=== PATIENT | male | born 1955 | race Caucasian/White ===

== ENCOUNTER 2016-06-23 12:09 | Emergency (ER) | payer MEDICARE, BC ==
[2016-06-23] MEDS ORDERED: COZAAR25 M1 PO ×2 (14:16→19:38)
[2016-06-23] MEDS ORDERED: CHANTIX START M1 TAB (14:17)
[2016-06-23] MEDS ORDERED: WELLBUTRIN SR150 M2 PO (19:34)
[2016-06-23] MEDS ORDERED: LAMICTAL150 MG PO (19:36)
[2016-06-23] MEDS ORDERED: ZYLOPRIM 100MG100 MG PO (19:36)
[2016-06-23] MEDS ORDERED: TYLENOL 325MG325 MG PO (19:36)
[2016-06-23] MEDS ORDERED: LASIX40 M1 PO (19:37)
[2016-06-23] MEDS ORDERED: ASPIRIN E.C. 8181 MG PO (19:37)
[2016-06-23] MEDS ORDERED: COLACE100 M1 PO (19:37)
[2016-06-23] MEDS ORDERED: LEXAPRO20 M1 PO (19:37)
[2016-06-23] MEDS ORDERED: LANTUS SOLOS100 U/ML SC (19:38)
[2016-06-23] MEDS ORDERED: NYSTATIN CREAM15 GM TOP (19:38)
[2016-06-23] MEDS ORDERED: HCTZ 25MG25 MG PO (19:38)
[2016-06-23] MEDS ORDERED: PRAVACHOL80 MG PO (19:39)
[2016-06-23] MEDS ORDERED: MIRALAX17 GM PO (19:39)
[2016-06-23] MEDS ORDERED: RISPERDAL 1M1 MG/TAB (19:40)
[2016-06-23] MEDS ORDERED: NATURE'S BLEND100 M2 PO (19:40)
[2016-06-23] MEDS ORDERED: SEROQUEL XR50 MG PO (19:40)
[2016-06-23] MEDS ORDERED: FLOMAX0.4 MG PO (19:40)
== END 2016-06-23 16:13 | disposition home or self-care (01) ==
LOC: ED 12:09
DX: S00.93XA Contusion of unspecified part of head, initial encounter (principal); S09.90XA Unspecified injury of head, initial encounter; S01.81XA Laceration without foreign body of other part of head, initial encounter; S00.83XA Contusion of other part of head, initial encounter; T14.8 Other injury of unspecified body region; W10.9XXA Fall (on) (from) unspecified stairs and steps, initial encounter; Y92.018 Other place in single-family (private) house as the place of occurrence of the external cause
CPT/HCPCS: 90715; A4550

== ENCOUNTER 2016-06-29 14:37 | Emergency (ER) | payer MEDICARE, BC ==
[~2016-06-29 14:37] MED LIST: ASPIRIN E.C. 8181 MG PO; CHANTIX START M1 TAB; COLACE100 M1 PO; COZAAR25 M1 PO; FLOMAX0.4 MG PO; HCTZ 25MG25 MG PO; LAMICTAL150 MG PO; LANTUS SOLOS100 U/ML SC; LASIX40 M1 PO; LEXAPRO20 M1 PO; MIRALAX17 GM PO; NATURE'S BLEND100 M2 PO; NYSTATIN CREAM15 GM TOP; PRAVACHOL80 MG PO; RISPERDAL 1M1 MG/TAB; SEROQUEL XR50 MG PO; TYLENOL 325MG325 MG PO; WELLBUTRIN SR150 M2 PO; ZYLOPRIM 100MG100 MG PO
[2016-06-29 14:54] VITALS: BP 131/72
== END 2016-06-29 14:54 | disposition home or self-care (01) ==
LOC: ED 14:37
DX: S01.81XD Laceration without foreign body of other part of head, subsequent encounter (principal)

== ENCOUNTER 2016-12-07 12:57 | Emergency (ER) | payer MEDICARE, BC ==
[~2016-12-07] VITALS: Wt 112.2 kg
[2016-12-07] MEDS ORDERED: LAMICTAL ODT200 MG PO (13:21)
[2016-12-07] MEDS ORDERED: BRAIN MIGHT-DH1 EACH PO (13:22)
[2016-12-07 16:29] VITALS: BP 146/88
== END 2016-12-07 16:15 | disposition other institution (70) ==
LOC: ED 12:57
DX: R41.82 Altered mental status, unspecified (principal); E86.0 Dehydration; E11.65 Type 2 diabetes mellitus with hyperglycemia; Z79.4 Long term (current) use of insulin; I10 Essential (primary) hypertension; Z86.73 Personal history of transient ischemic attack (TIA), and cerebral infarction without residual deficits; F31.9 Bipolar disorder, unspecified; T38.3X6A Underdosing of insulin and oral hypoglycemic [antidiabetic] drugs, initial encounter; T43.96XA Underdosing of unspecified psychotropic drug, initial encounter
CPT/HCPCS: J7030

== ENCOUNTER 2016-12-07 16:08 | Inpatient (IN) | payer MEDICARE, BC ==
[~2016-12-07] VITALS: Ht 172.7 cm; Wt 119.4 kg
[2016-12-07] VITALS (7 sets, daily range): BP systolic 146–169; BP diastolic 81–88
[~2016-12-07 16:08] MED LIST changes: +BRAIN MIGHT-DH1 EACH PO; +LAMICTAL ODT200 MG PO
[2016-12-08 02:53] VITALS: BP 142/71
[2016-12-08 06:18] VITALS: BP 159/84
[2016-12-08 11:44] VITALS: BP 150/77
[2016-12-08 15:20] VITALS: BP 142/72
[2016-12-08 18:03] VITALS: BP 139/69
[2016-12-08 23:04] VITALS: BP 136/69
[2016-12-09 03:07] VITALS: BP 128/72
[2016-12-09 06:31] VITALS: BP 140/78
[2016-12-09 11:53] VITALS: BP 119/69
[2016-12-09 15:45] VITALS: BP 112/72
[2016-12-09 18:20] VITALS: BP 140/75
[2016-12-09 22:49] VITALS: BP 126/66
[2016-12-10 02:25] VITALS: BP 143/82
[2016-12-10 05:42] VITALS: BP 137/66
[2016-12-10 11:14] VITALS: BP 143/87
[2016-12-10 14:54] VITALS: BP 129/65
[2016-12-10 18:33] VITALS: BP 119/63
[2016-12-10 23:13] VITALS: BP 140/68
[2016-12-11 02:24] VITALS: BP 161/82
[2016-12-11 06:28] VITALS: BP 138/76
[2016-12-11 10:47] VITALS: BP 141/74
[2016-12-11 15:13] VITALS: BP 149/69
[2016-12-11 18:49] VITALS: BP 138/73
[2016-12-11 23:10] VITALS: BP 123/63
[2016-12-12 03:04] VITALS: BP 134/71
[2016-12-12 06:31] VITALS: BP 149/79
== END 2016-12-10 00:01 | disposition home health service (06) | DRG 690 ==
LOC: EDSTATUS 16:08 → MED/SURG 16:15
PROVIDERS: ADMIT Nurse Practitioner Primary Care
DX: N39.0 Urinary tract infection, site not specified (principal); R41.82 Altered mental status, unspecified; E86.0 Dehydration; E11.65 Type 2 diabetes mellitus with hyperglycemia; Z79.4 Long term (current) use of insulin; I10 Essential (primary) hypertension; F31.9 Bipolar disorder, unspecified; Z91.14 Patient's other noncompliance with medication regimen; N40.0 Benign prostatic hyperplasia without lower urinary tract symptoms; G47.33 Obstructive sleep apnea (adult) (pediatric); H04.123 Dry eye syndrome of bilateral lacrimal glands; Z86.73 Personal history of transient ischemic attack (TIA), and cerebral infarction without residual deficits
CPT/HCPCS: A9585; G0378; G0379; J1650; J1815; J7030

== ENCOUNTER 2016-12-10 00:02 | Observation (INO) | payer MEDICARE, BC ==
[2016-12-12 11:45] VITALS: BP 163/73
[2016-12-12] MEDS ORDERED: LAMICTAL200 M1 PO (18:02)
[2016-12-12] MEDS ORDERED: SEROQUEL50 MG PO (18:09)
--- NOTE | 2016-12-13 16:34 | NUR ---
Observation procedure documentation charges placed on this chart for days 12/09 thru 12/12. These Charges were removed from his inpt chart ([id number]).
== END 2016-12-12 15:40 | disposition swing bed (61) ==
LOC: MED/SURG 00:02
PROVIDERS: ADMIT Nurse Practitioner Primary Care
DX: G45.9 Transient cerebral ischemic attack, unspecified (principal); R41.82 Altered mental status, unspecified; Z91.14 Patient's other noncompliance with medication regimen; E86.0 Dehydration; E11.8 Type 2 diabetes mellitus with unspecified complications; Z79.4 Long term (current) use of insulin; Z86.73 Personal history of transient ischemic attack (TIA), and cerebral infarction without residual deficits; I10 Essential (primary) hypertension; F10.21 Alcohol dependence, in remission; Z79.82 Long term (current) use of aspirin; N39.0 Urinary tract infection, site not specified; G47.33 Obstructive sleep apnea (adult) (pediatric); F31.9 Bipolar disorder, unspecified
CPT/HCPCS: G0378; G0379; J1650; J1815; J7030

== ENCOUNTER 2016-12-12 15:41 | Inpatient (IN) | payer MEDICARE, BC ==
[~2016-12-12] VITALS: Ht 172.7 cm; Wt 120.3 kg
[2016-12-12] MEDS ORDERED: LAMICTAL200 M1 PO (18:02)
[2016-12-12] MEDS ORDERED: SEROQUEL50 MG PO (18:09)
[2016-12-12 18:52] VITALS: BP 144/74
[2016-12-12 19:40] VITALS: BP 144/74
[2016-12-13 06:34] VITALS: BP 119/69
[2016-12-13 18:08] VITALS: BP 148/70
[2016-12-14 06:38] VITALS: BP 109/63
[2016-12-14 18:37] VITALS: BP 139/76
[2016-12-15 06:39] VITALS: BP 114/61
[2016-12-15 18:29] VITALS: BP 141/74
[2016-12-16 06:30] VITALS: BP 119/70
[2016-12-16 18:18] VITALS: BP 141/65
[2016-12-17 06:27] VITALS: BP 147/75
[2016-12-17 18:37] VITALS: BP 138/63
[2016-12-18 06:23] VITALS: BP 121/61
[2016-12-18 18:27] VITALS: BP 156/81
[2016-12-19 06:44] VITALS: BP 134/69
[2016-12-19 17:56] VITALS: BP 150/66
[2016-12-20 06:23] VITALS: BP 136/76
[2016-12-20] MEDS ORDERED: CLOPIDOGREL75 M1 PO (07:45)
[2016-12-20] MEDS ORDERED: NYSTATIN POWDER30 GM TP (07:50)
== END 2016-12-20 09:42 | disposition home health service (06) | DRG 57 ==
LOC: MED/SURG 15:41
PROVIDERS: ADMIT Nurse Practitioner Primary Care
DX: I69.818 Other symptoms and signs involving cognitive functions following other cerebrovascular disease (principal); R53.81 Other malaise; I10 Essential (primary) hypertension; E11.9 Type 2 diabetes mellitus without complications; L60.3 Nail dystrophy; I69.398 Other sequelae of cerebral infarction; G93.89 Other specified disorders of brain; F31.9 Bipolar disorder, unspecified; B37.2 Candidiasis of skin and nail; Z79.4 Long term (current) use of insulin
CPT/HCPCS: J1650; J1815

== ENCOUNTER 2016-12-21 09:50 | Outpatient (RCR) | payer MEDICARE, BC ==
[2016-12-20 06:23] VITALS: BP 136/76
[~2016-12-21 09:50] MED LIST changes: +CLOPIDOGREL75 M1 PO; +LAMICTAL200 M1 PO; +NYSTATIN POWDER30 GM TP; +SEROQUEL50 MG PO
== END 2017-01-05 14:37 ==
LOC: OPPGERO 09:50
DX: F41.1 Generalized anxiety disorder (principal)

== ENCOUNTER 2017-01-06 08:41 | Outpatient (RCR) | payer MEDICARE, BC | END 2017-02-03 15:18 | LOC: OPPGERO 08:41 | DX: F31.9 Bipolar disorder, unspecified (principal); F41.1 Generalized anxiety disorder ==

== ENCOUNTER 2017-02-05 09:00 | Outpatient (RCR) | payer MEDICARE, BC | END 2017-03-07 16:25 | LOC: OPPGERO 09:00 | DX: F31.9 Bipolar disorder, unspecified (principal); F41.1 Generalized anxiety disorder ==

== ENCOUNTER 2017-03-08 10:12 | Outpatient (RCR) | payer MEDICARE, BC | END 2017-04-06 13:03 | LOC: OPPGERO 10:12 | DX: F31.9 Bipolar disorder, unspecified (principal); F41.1 Generalized anxiety disorder ==

== ENCOUNTER 2020-07-12 10:26 | Emergency (ER) | payer MEDICARE, BC ==
[~2020-07-12 10:26] MED LIST changes: -LAMICTAL200 M1 PO; -LASIX40 M1 PO; +LASIX80 M1 PO
[2020-07-12] MEDS ORDERED: HCTZ 25MG25 MG PO (10:42)
[2020-07-12] MEDS ORDERED: MEMANTINE HCL10 MG PO (10:44)
[2020-07-12] MEDS ORDERED: NORVASC 10MG10 MG PO (10:45)
[2020-07-12] MEDS ORDERED: LOSARTAN POTASS25 MG PO (10:46)
[2020-07-12] MEDS ORDERED: RISPERIDONE0.5 M2 PO (10:46)
[2020-07-12] MEDS ORDERED: DONEPEZIL HCL10 MG PO (10:46)
[2020-07-12] MEDS ORDERED: ESCITALOPRAM20 MG PO (10:47)
[2020-07-12] MEDS ORDERED: LAMOTRIGINE200 MG PO (10:47)
[2020-07-12] MEDS ORDERED: QUETIAPINE FUMA50 MG PO (10:47)
[2020-07-12] MEDS ORDERED: WELLBUTRIN XL150 M2 PO (10:47)
[2020-07-12 11:19] LABS: EOS # 0.5 (0.04-0.40); HEMOGLOBIN 11.4 g/dL (13.5-18.0); MEAN CELL VOLUME 93 fl (78-100); MEAN CORPUSCULAR HEMOGLOBIN 29 pg (27-31); MEAN CORPUSCULAR HGB CONC 31 g/dL (33-37); MEAN PLATELET VOLUME 10.4 fl (7.4-10.4); MONO # 0.6 (0.20-0.80); NEU # 5.7 (1.40-6.50); PLATELET COUNT 239 K/mm3 (130-400); RED CELL DISTRIBUTION WIDTH 14.9 % (11.5-14.5); WHITE BLOOD COUNT 7.8 K/mm3 (4.8-10.8)
[2020-07-12 11:20] LABS: EOS % 6.4 % (0.0-4.0)
[2020-07-12 11:30] LABS: ALBUMIN 2.8 g/dL (3.4-4.8)
[2020-07-12 11:31] LABS: POTASSIUM 4.5 mmol/L (3.5-5.1)
[2020-07-12 11:32] LABS: CALCIUM 7.9 mg/dL (8.3-10.5)
[2020-07-12 11:33] LABS: TOTAL PROTEIN 5.9 g/dL (6.2-8.1)
[2020-07-12 11:43] LABS: TOTAL BILIRUBIN 0.1 mg/dL (0.2-1.2)
[2020-07-12 13:28] LABS: URINE APPEARANCE CLEAR; URINE BILIRUBIN NEGATIVE (NEGATIVE); URINE BLOOD TRACE (NEGATIVE); URINE COLOR YELLOW; URINE KETONE NEGATIVE (NEGATIVE); URINE LEUKOCYTE ESTERASE NEGATIVE (NEGATIVE); URINE NITRATE NEGATIVE (NEGATIVE); URINE PROTEIN(semi-quant) 3+ mg/dL (NEGATIVE); URINE UROBILINOGEN NORMAL (NORMAL); URINE WBC 0-1 /hpf (0-3)
[2020-07-12 15:32] VITALS: BP 159/77
== END 2020-07-12 15:12 | disposition home or self-care (01) ==
LOC: ED 10:26
PROVIDERS: Family Medicine
DX: R53.81 Other malaise (principal); T50.B95A Adverse effect of other viral vaccines, initial encounter; E11.9 Type 2 diabetes mellitus without complications; F31.9 Bipolar disorder, unspecified; I13.0 Hypertensive heart and chronic kidney disease with heart failure and stage 1 through stage 4 chronic kidney disease, or unspecified chronic kidney disease; N18.9 Chronic kidney disease, unspecified; Z79.02 Long term (current) use of antithrombotics/antiplatelets; Z79.82 Long term (current) use of aspirin

== ENCOUNTER 2021-03-02 13:37 | Inpatient (IN) | payer MEDICARE, BC ==
[~2021-03-02] VITALS: Ht 175.3 cm; Wt 116.0 kg
[~2021-03-02 13:37] MED LIST changes: +DONEPEZIL HCL10 MG PO; +ESCITALOPRAM20 MG PO; +LAMOTRIGINE200 MG PO; +LOSARTAN POTASS25 MG PO; +MEMANTINE HCL10 MG PO; +NORVASC 10MG10 MG PO; +QUETIAPINE FUMA50 MG PO; +RISPERIDONE0.5 M2 PO; +WELLBUTRIN XL150 M2 PO
[2021-03-02 16:00] VITALS: BP 158/69
[2021-03-02] MEDS ORDERED: ACID-PEP20 MG PO (16:05)
[2021-03-02] MEDS ORDERED: INSULIN AS100 UNIT/2 SQ (16:07)
[2021-03-02] MEDS ORDERED: BETAMETHASONE D0.05% TOP (16:11)
[2021-03-02] MEDS ORDERED: CLOPIDOGREL PO (16:12)
[2021-03-02] MEDS ORDERED: VITAMIN D250 MC1 PO (16:14)
[2021-03-02] MEDS ORDERED: NIZORAL A-D125 ML TP (16:15)
[2021-03-02] MEDS ORDERED: LOPERAMIDE1 MG/7.51 PO (16:27)
[2021-03-02] MEDS ORDERED: LOPERAMIDE2 M2 PO (16:28)
[2021-03-02] MEDS ORDERED: COZAAR25 M1 PO (16:29)
[2021-03-02] MEDS ORDERED: TRIAMCINOLONE A60 M2 TP (16:38)
[2021-03-02 18:18] VITALS: BP 158/69
[2021-03-02 18:26] LABS: URINE APPEARANCE CLEAR; URINE COLOR YELLOW; URINE PROTEIN(semi-quant) 3+ mg/dL (NEGATIVE)
[2021-03-02 18:27] LABS: URINE BILIRUBIN NEGATIVE (NEGATIVE); URINE BLOOD 50 ery/uL (NEGATIVE); URINE GLUCOSE 50 mg/dL mg/dL (NEGATIVE); URINE KETONE NEGATIVE (NEGATIVE); URINE LEUKOCYTE ESTERASE NEGATIVE (NEGATIVE); URINE MUCUS PRESENT (NOT PRESENT); URINE NITRATE NEGATIVE (NEGATIVE); URINE UROBILINOGEN NORMAL (NORMAL); URINE WBC 0-1 /hpf (0-3)
[2021-03-02] MEDS ORDERED: DICLOFENAC SOD100 GM TP (19:55)
[2021-03-03 05:38] VITALS: BP 162/68
[2021-03-03 07:06] LABS: BASO # 0.04 K/mm3 (0.02-0.10); EOS # 0.47 K/mm3 (0.04-0.40); EOS % 7.2 % (0.0-4.0); HEMATOCRIT 38.2 % (42.0-52.0); HEMOGLOBIN 11.6 g/dL (13.5-18.0); MEAN CELL VOLUME 92 fl (78-100); MEAN CORPUSCULAR HEMOGLOBIN 28 pg (27-31); MEAN CORPUSCULAR HGB CONC 30 g/dL (33-37); MEAN PLATELET VOLUME 10.8 fl (7.4-10.4); MONO # 0.71 K/mm3 (0.20-0.80); NEU # 4.25 K/mm3 (1.40-6.50); PLATELET COUNT 268 K/mm3 (130-400); RED BLOOD COUNT 4.15 M/mm3 (4.20-5.60); RED CELL DISTRIBUTION WIDTH 14.7 % (11.5-14.5); WHITE BLOOD COUNT 6.5 K/mm3 (4.8-10.8)
[2021-03-03 07:09] LABS: ALBUMIN 2.9 g/dL (3.4-4.8)
[2021-03-03 07:10] LABS: POTASSIUM 4.6 mmol/L (3.5-5.1)
[2021-03-03 07:11] LABS: CALCIUM 9.5 mg/dL (8.3-10.5)
[2021-03-03 07:12] LABS: TOTAL PROTEIN 6.5 g/dL (6.2-8.1)
[2021-03-03 07:14] LABS: TOTAL BILIRUBIN 0.3 mg/dL (0.2-1.2)
[2021-03-03 17:12] VITALS: BP 153/66
[2021-03-04 05:57] VITALS: BP 154/62
[2021-03-04 06:49] LABS: POTASSIUM 4.3 mmol/L (3.5-5.1)
[2021-03-04 06:50] LABS: CALCIUM 9.2 mg/dL (8.3-10.5)
[2021-03-04 18:04] VITALS: BP 157/63
[2021-03-05 05:35] VITALS: BP 156/76
[2021-03-05 07:35] LABS: POTASSIUM 4.5 mmol/L (3.5-5.1)
[2021-03-05 07:36] LABS: CALCIUM 8.9 mg/dL (8.3-10.5)
[2021-03-05] MEDS ORDERED: SEROQUEL XR50 MG PO (08:32)
[2021-03-05 17:52] VITALS: BP 162/71
[2021-03-06 05:33] VITALS: BP 154/70
[2021-03-06 18:17] VITALS: BP 123/67
[2021-03-07 06:00] VITALS: BP 150/71
[2021-03-07 17:01] VITALS: BP 151/71
[2021-03-08 05:38] VITALS: BP 138/75
[2021-03-08 07:42] LABS: POTASSIUM 4.5 mmol/L (3.5-5.1)
[2021-03-08 07:44] LABS: CALCIUM 9.2 mg/dL (8.3-10.5)
[2021-03-08 17:21] VITALS: BP 126/67
[2021-03-09 06:07] VITALS: BP 145/75
[2021-03-09 18:12] VITALS: BP 148/71
[2021-03-10 05:58] VITALS: BP 148/68
[2021-03-10 07:41] LABS: POTASSIUM 4.5 mmol/L (3.5-5.1)
[2021-03-10 07:42] LABS: CALCIUM 9.4 mg/dL (8.3-10.5)
[2021-03-10 17:51] VITALS: BP 132/70
[2021-03-11 06:18] VITALS: BP 150/65
[2021-03-11 17:41] VITALS: BP 143/74
[2021-03-12 05:55] VITALS: BP 164/58
[2021-03-12 07:02] LABS: POTASSIUM 4.8 mmol/L (3.5-5.1)
[2021-03-12 07:04] LABS: CALCIUM 9.3 mg/dL (8.3-10.5)
[2021-03-12 17:51] VITALS: BP 144/66
[2021-03-13 05:04] VITALS: BP 155/81
[2021-03-13 18:20] VITALS: BP 151/75
[2021-03-14 04:45] VITALS: BP 153/76
[2021-03-14 18:10] VITALS: BP 137/73
[2021-03-15 06:08] VITALS: BP 169/74
[2021-03-15 07:01] LABS: BASO # 0.05 K/mm3 (0.02-0.10); EOS % 8.2 % (0.0-4.0); HEMATOCRIT 38.1 % (42.0-52.0); HEMOGLOBIN 11.4 g/dL (13.5-18.0); LYMPH# 1.02 K/mm3 (1.50-4.00); MEAN CELL VOLUME 93 fl (78-100); MEAN CORPUSCULAR HEMOGLOBIN 28 pg (27-31); MEAN CORPUSCULAR HGB CONC 30 g/dL (33-37); MEAN PLATELET VOLUME 11.2 fl (7.4-10.4); MONO # 0.56 K/mm3 (0.20-0.80); NEU # 5.07 K/mm3 (1.40-6.50); PLATELET COUNT 248 K/mm3 (130-400); RED CELL DISTRIBUTION WIDTH 15.3 % (11.5-14.5); WHITE BLOOD COUNT 7.3 K/mm3 (4.8-10.8)
[2021-03-15 07:09] LABS: POTASSIUM 4.8 mmol/L (3.5-5.1)
[2021-03-15 07:10] LABS: CALCIUM 8.9 mg/dL (8.3-10.5)
[2021-03-15 15:20] VITALS: BP 125/70
[2021-03-16 05:52] VITALS: BP 170/67
[2021-03-16 17:46] VITALS: BP 165/75
[2021-03-17 06:11] VITALS: BP 151/76
[2021-03-17 17:38] VITALS: BP 161/73
[2021-03-18 05:55] VITALS: BP 171/66
[2021-03-18 13:51] VITALS: BP 152/72
[2021-03-19 05:51] VITALS: BP 128/72
[2021-03-19 17:14] VITALS: BP 147/76
[2021-03-20 05:44] VITALS: BP 166/65
[2021-03-20 17:33] VITALS: BP 144/71
[2021-03-21 05:53] VITALS: BP 148/68
[2021-03-21 17:59] VITALS: BP 143/67
[2021-03-22 06:05] VITALS: BP 154/64
[2021-03-22 06:55] LABS: BASO # 0.05 K/mm3 (0.02-0.10); EOS # 0.67 K/mm3 (0.04-0.40); EOS % 8.4 % (0.0-4.0); HEMATOCRIT 40.2 % (42.0-52.0); HEMOGLOBIN 12.1 g/dL (13.5-18.0); LYMPH# 1.18 K/mm3 (1.50-4.00); MEAN CELL VOLUME 94 fl (78-100); MEAN CORPUSCULAR HEMOGLOBIN 28 pg (27-31); MEAN CORPUSCULAR HGB CONC 30 g/dL (33-37); MEAN PLATELET VOLUME 11.3 fl (7.4-10.4); MONO # 0.68 K/mm3 (0.20-0.80); NEU # 5.43 K/mm3 (1.40-6.50); PLATELET COUNT 216 K/mm3 (130-400); RED BLOOD COUNT 4.28 M/mm3 (4.20-5.60); RED CELL DISTRIBUTION WIDTH 15.6 % (11.5-14.5)
[2021-03-22 07:14] LABS: POTASSIUM 4.9 mmol/L (3.5-5.1)
[2021-03-22 07:15] LABS: CALCIUM 8.9 mg/dL (8.3-10.5)
[2021-03-22 14:23] VITALS: BP 157/74
[2021-03-23 05:46] VITALS: BP 152/65
[2021-03-23 16:29] VITALS: BP 128/65
[2021-03-24 05:38] VITALS: BP 161/73
[2021-03-24] MEDS ORDERED: CYCLOBENZAPRINE10 M1 PO (09:38)
[2021-03-24] MEDS ORDERED: LASIX 80MG TABL80 MG PO (09:39)
[2021-03-24] MEDS ORDERED: HEALTHYLAX17 GM/Dose PO (09:41)
[2021-03-24] MEDS ORDERED: RISPERIDONE0.25 M2 PO (09:43)
[2021-03-24] MEDS ORDERED: PRAVASTATIN SOD20 MG PO (09:45)
[2021-03-24 18:19] VITALS: BP 143/68
[2021-03-25 05:53] VITALS: BP 140/80
== END 2021-03-25 12:50 | disposition home or self-care (01) | DRG 948 ==
LOC: MED/SURG 13:37
PROVIDERS: Family Medicine; Physician Assistant; ADMIT Nurse Practitioner Family
DX: R53.81 Other malaise (principal); N18.4 Chronic kidney disease, stage 4 (severe); Z68.41 Body mass index [BMI] 40.0-44.9, adult; I12.9 Hypertensive chronic kidney disease with stage 1 through stage 4 chronic kidney disease, or unspecified chronic kidney disease; F01.50 Vascular dementia, unspecified severity, without behavioral disturbance, psychotic disturbance, mood disturbance, and anxiety; I95.1 Orthostatic hypotension; E11.22 Type 2 diabetes mellitus with diabetic chronic kidney disease; N40.0 Benign prostatic hyperplasia without lower urinary tract symptoms; E87.70 Fluid overload, unspecified; F31.9 Bipolar disorder, unspecified; E66.01 Morbid (severe) obesity due to excess calories; E78.5 Hyperlipidemia, unspecified; Z79.82 Long term (current) use of aspirin; Z79.4 Long term (current) use of insulin; Z86.73 Personal history of transient ischemic attack (TIA), and cerebral infarction without residual deficits; Z87.891 Personal history of nicotine dependence; Z88.1 Allergy status to other antibiotic agents
CPT/HCPCS: J1650

== ENCOUNTER 2021-08-05 13:22 | Inpatient (IN) | payer MEDICARE, BC ==
[~2021-08-05] VITALS: Ht 170.2 cm; Wt 111.2 kg
[~2021-08-05 13:22] MED LIST changes: +ACID-PEP20 MG PO; +BETAMETHASONE D0.05% TOP; +CLOPIDOGREL PO; +CYCLOBENZAPRINE10 M1 PO; +DICLOFENAC SOD100 GM TP; +HEALTHYLAX17 GM/Dose PO; +INSULIN AS100 UNIT/2 SQ; +LASIX 80MG TABL80 MG PO; +LOPERAMIDE1 MG/7.51 PO; +LOPERAMIDE2 M2 PO; +NIZORAL A-D125 ML TP; +PRAVASTATIN SOD20 MG PO; +RISPERIDONE0.25 M2 PO; +TRIAMCINOLONE A60 M2 TP; +VITAMIN D250 MC1 PO
[2021-08-05] MEDS ORDERED: IPRATROPIUM BROM3 M1 IH (16:32)
[2021-08-05] MEDS ORDERED: LIPITOR 10M10 MG/TAB PO (16:36)
[2021-08-05] MEDS ORDERED: COREG 6.256.25 MG/TA PO (16:36)
[2021-08-05] MEDS ORDERED: FERROUS SULFATE65 MG PO (16:37)
[2021-08-05] MEDS ORDERED: LEXAPRO5 MG PO (16:42)
[2021-08-05] MEDS ORDERED: LASIX80 M1 PO (16:43)
[2021-08-05] MEDS ORDERED: NORCO 325 MG-51 TA1 PO (16:46)
[2021-08-05] MEDS ORDERED: PROTONIX TR40 M1 PO (16:47)
[2021-08-05 17:11] LABS: HEMATOCRIT 28.9 % (42.0-52.0); HEMOGLOBIN 8.5 g/dL (13.5-18.0); MEAN PLATELET VOLUME 11.3 fl (7.4-10.4); RED BLOOD COUNT 3.23 M/mm3 (4.20-5.60); RED CELL DISTRIBUTION WIDTH 15.3 % (11.5-14.5); WHITE BLOOD COUNT 6.4 K/mm3 (4.8-10.8)
[2021-08-05 17:17] LABS: ALBUMIN 2.8 g/dL (3.4-4.8)
[2021-08-05 17:18] LABS: POTASSIUM 4.5 mmol/L (3.5-5.1)
[2021-08-05 17:19] LABS: CALCIUM 8.3 mg/dL (8.3-10.5)
[2021-08-05 17:20] VITALS: BP 128/60
[2021-08-05 17:22] LABS: TOTAL BILIRUBIN 0.2 mg/dL (0.2-1.2)
[2021-08-05 19:03] VITALS: BP 128/60
[2021-08-05 21:56] LABS: URINE APPEARANCE CLEAR; URINE COLOR YELLOW; URINE PROTEIN(semi-quant) 3+ (NEGATIVE)
[2021-08-05 21:57] LABS: URINE BILIRUBIN NEGATIVE (NEGATIVE); URINE BLOOD TRACE (NEGATIVE); URINE GLUCOSE 50 mg/dL (NEGATIVE); URINE KETONE NEGATIVE (NEGATIVE); URINE LEUKOCYTE ESTERASE NEGATIVE (NEGATIVE); URINE NITRATE NEGATIVE (NEGATIVE); URINE UROBILINOGEN NORMAL (NORMAL); URINE WBC 0-1 /hpf (0-3)
[2021-08-06 06:22] VITALS: BP 179/69
[2021-08-06 17:09] VITALS: BP 104/56
[2021-08-07 06:06] VITALS: BP 135/77
[2021-08-07 18:29] VITALS: BP 171/74
[2021-08-08 06:13] VITALS: BP 178/73
[2021-08-08 17:31] VITALS: BP 168/63
[2021-08-09 06:16] VITALS: BP 198/70
[2021-08-09 11:14] VITALS: BP 142/71
[2021-08-09 17:20] VITALS: BP 175/69
[2021-08-10 05:43] VITALS: BP 172/66
[2021-08-10] MEDS ORDERED: CLEOCIN HCL150 M1 PO (13:20)
[2021-08-10] MEDS ORDERED: TORSEMIDE20 M1 PO (14:04)
[2021-08-10] MEDS ORDERED: LEXAPRO5 MG PO (14:04)
[2021-08-10] MEDS ORDERED: CARVEDILOL6.25 MG PO (14:04)
[2021-08-10] MEDS ORDERED: ATORVASTATIN CA10 MG PO (14:04)
[2021-08-10] MEDS ORDERED: LASIX 80MG TABL80 MG PO (14:06)
[2021-08-10] MEDS ORDERED: FERRETTS325 M1 PO (14:06)
== END 2021-08-10 15:15 | disposition home health service (06) | DRG 947 ==
LOC: MED/SURG 13:22
PROVIDERS: ADMIT Family Medicine
DX: R53.81 Other malaise (principal); J96.01 Acute respiratory failure with hypoxia; N18.4 Chronic kidney disease, stage 4 (severe); I13.0 Hypertensive heart and chronic kidney disease with heart failure and stage 1 through stage 4 chronic kidney disease, or unspecified chronic kidney disease; L03.113 Cellulitis of right upper limb; I50.9 Heart failure, unspecified; E11.22 Type 2 diabetes mellitus with diabetic chronic kidney disease; E11.51 Type 2 diabetes mellitus with diabetic peripheral angiopathy without gangrene; F03.90 Unspecified dementia, unspecified severity, without behavioral disturbance, psychotic disturbance, mood disturbance, and anxiety; G47.33 Obstructive sleep apnea (adult) (pediatric); N40.0 Benign prostatic hyperplasia without lower urinary tract symptoms; D50.9 Iron deficiency anemia, unspecified; D69.6 Thrombocytopenia, unspecified; F31.9 Bipolar disorder, unspecified; E66.9 Obesity, unspecified; Z68.37 Body mass index [BMI] 37.0-37.9, adult; E78.5 Hyperlipidemia, unspecified; Z86.73 Personal history of transient ischemic attack (TIA), and cerebral infarction without residual deficits; Z88.1 Allergy status to other antibiotic agents

== ENCOUNTER 2021-10-01 12:02 | Emergency (ER) | payer MEDICARE, BC ==
[~2021-10-01] VITALS: Ht 167.6 cm; Wt 110.9 kg
[~2021-10-01 12:02] MED LIST changes: +ATORVASTATIN CA10 MG PO; +CARVEDILOL6.25 MG PO; +CLEOCIN HCL150 M1 PO; +COREG 6.256.25 MG/TA PO; +FERRETTS325 M1 PO; +FERROUS SULFATE65 MG PO; +IPRATROPIUM BROM3 M1 IH; +LEXAPRO5 MG PO; +LIPITOR 10M10 MG/TAB PO; +NORCO 325 MG-51 TA1 PO; +PROTONIX TR40 M1 PO; +TORSEMIDE20 M1 PO
[2021-10-01 12:14] VITALS: BP 168/87
[2021-10-01] MEDS ORDERED: AMOXICILLIN AND1 TA2 PO (15:35)
== END 2021-10-01 16:12 | disposition home or self-care (01) ==
LOC: ED 12:02
DX: S01.511A Laceration without foreign body of lip, initial encounter (principal); E66.01 Morbid (severe) obesity due to excess calories; Z88.1 Allergy status to other antibiotic agents; Z87.891 Personal history of nicotine dependence; W01.198A Fall on same level from slipping, tripping and stumbling with subsequent striking against other object, initial encounter; Y93.02 Activity, running; Y92.410 Unspecified street and highway as the place of occurrence of the external cause
CPT/HCPCS: 90715

== ENCOUNTER 2024-01-30 07:50 | Outpatient (RCR) | payer MEDICARE, BC ==
[~2024-01-30 07:50] MED LIST changes: +AMOXICILLIN AND1 TA2 PO
== END 2024-02-05 | disposition home or self-care (01) ==
LOC: PT
DX: I50.9 Heart failure, unspecified (principal); N18.6 End stage renal disease; R53.1 Weakness; R29.6 Repeated falls; Z86.73 Personal history of transient ischemic attack (TIA), and cerebral infarction without residual deficits; Z99.2 Dependence on renal dialysis

== ENCOUNTER 2024-02-06 10:11 | Outpatient (RCR) | payer MEDICARE, BC | END 2024-03-06 14:40 | LOC: SPEECH 10:11 | DX: R41.841 Cognitive communication deficit (principal) ==

== ENCOUNTER 2024-02-06 10:30 | Outpatient (RCR) | payer MEDICARE, BC | END 2024-03-06 14:40 | disposition home or self-care (01) | LOC: PT 10:30 | DX: I12.9 Hypertensive chronic kidney disease with stage 1 through stage 4 chronic kidney disease, or unspecified chronic kidney disease (principal); N18.6 End stage renal disease; Z99.2 Dependence on renal dialysis; Z86.73 Personal history of transient ischemic attack (TIA), and cerebral infarction without residual deficits ==

== ENCOUNTER 2024-04-03 11:58 | Emergency (ER) | payer MEDICARE, BC ==
[~2024-04-03] VITALS: Ht 172.7 cm; Wt 110.7 kg
[2024-04-03] MEDS ORDERED: NS 1,000 ML IV ONE (12:15)
[2024-04-03] MEDS ORDERED: ATORVASTATIN CA20 MG PO (12:42)
[2024-04-03] MEDS ORDERED: RISPERDAL 0.5M0.5 MG (12:43)
[2024-04-03 12:53] LABS: BASO # 0.02 K/mm3 (0.02-0.10); EOS # 0.21 K/mm3 (0.04-0.40); EOS % 3.7 % (0.0-4.0); HEMATOCRIT 36.5 % (42.0-52.0); HEMOGLOBIN 11.6 g/dL (13.5-18.0); LYMPH# 0.79 K/mm3 (1.50-4.00); MEAN CELL VOLUME 100 fl (78-100); MEAN CORPUSCULAR HEMOGLOBIN 32 pg (27-31); MEAN CORPUSCULAR HGB CONC 32 g/dL (33-37); MEAN PLATELET VOLUME 10.3 fl (7.4-10.4); MONO # 0.38 K/mm3 (0.20-0.80); NEU # 4.23 K/mm3 (1.40-6.50); PLATELET COUNT 226 K/mm3 (130-400); RED BLOOD COUNT 3.66 M/mm3 (4.20-5.60); RED CELL DISTRIBUTION WIDTH 14.2 % (11.5-14.5); WHITE BLOOD COUNT 5.7 K/mm3 (4.8-10.8)
[2024-04-03 12:59] LABS: CALCIUM 10.6 mg/dL (8.3-10.5)
[2024-04-03 13:00] LABS: TOTAL PROTEIN 7.1 g/dL (6.2-8.1)
[2024-04-03 13:02] LABS: TOTAL BILIRUBIN 0.6 mg/dL (0.2-1.2)
[2024-04-03 13:14] LABS: TROPONIN-I 0.063 ng/mL (0.00-0.033)
[2024-04-03] MEDS ORDERED: Furosemide 40 MG/4 ML VIAL IV ONE (17:00)
[2024-04-03 17:35] VITALS: BP 168/74
== END 2024-04-03 17:35 | disposition short-term general hospital (02) ==
LOC: ED 11:58
PROVIDERS: Family Medicine
DX: I21.4 Non-ST elevation (NSTEMI) myocardial infarction (principal); I50.9 Heart failure, unspecified; Z86.73 Personal history of transient ischemic attack (TIA), and cerebral infarction without residual deficits
CPT/HCPCS: J1940; J7030